=== PATIENT | male | born 1975 | race Caucasian/White ===

== ENCOUNTER 2017-12-16 11:04 | Emergency (ER) | payer SELFPAY ==
[2017-12-16 11:05] VITALS: BMI 56.9
[2017-12-16] MEDS ORDERED: Sodium Chloride 0.9% 1,000 ML IV ONE (11:34)
--- NOTE | 2017-12-16 11:35 | C.PDOC ---
History Of Present Illness 42 y/o male presents to ED with complaints of intermittent left sided chest pain radiating to left upper back with associated sob for 1 week. He states he feels his heart pounding fast as if it will come out of chest. Patient admits he drinks ETOH daily and reports last drink 10am today. Patient is speaking in full sentences and oriented. He is accompanied by mother. Denies cough, nausea, vomiting or lightheadedness. Time Seen by Provider: 12/16/17 11:18 Chief Complaint (Nursing): Chest Pain History Per: Patient History/Exam Limitations: no limitations Onset/Duration Of Symptoms: Days Current Symptoms Are (Timing): Still Present Past Medical History Reviewed: Historical Data, Nursing Documentation, Vital Signs Vital Signs: Last Vital Signs Temp 98.2 F 12/16/17 13:28 Pulse 96 H 12/16/17 13:28 Resp 20 12/16/17 13:28 BP 112/78 12/16/17 13:28 Pulse Ox 94 L 12/16/17 13:28 - Medical History PMH: Fractures (RIGHT ANKLE), Seizures Surgical History: No Surg Hx - [facility] Procedures ALCOHOL DETOXIFICATION (11/28/13) ANESTH INJEC PERIPH NERV (05/22/15) DETOXIFICATION SERVICES FOR SUBSTANCE ABUSE TREATMENT (09/09/15) OP RED-INT FIX TIB/FIBUL (05/22/15) OTHER SUTURE OF TENDON (05/22/15) Family History: States: No Known Family Hx - Social History Hx Tobacco Use: No Hx Alcohol Use: No Hx Substance Use: No - Immunization History Hx Tetanus Toxoid Vaccination: No Hx Influenza Vaccination: No Hx Pneumococcal Vaccination: No Review Of Systems Constitutional: Negative for: Fever, Chills Cardiovascular: Positive for: Chest Pain, Palpitations. Negative for: Light Headedness Respiratory: Positive for: Shortness of Breath. Negative for: Cough Gastrointestinal: Negative for: Nausea, Vomiting Skin: Negative for: Rash Neurological: Negative for: Headache, Dizziness Physical Exam - Physical Exam Appears: Non-toxic, Other (ETOH on breath. Anxious appearing) Skin: Warm, Dry, No Rash Head: Atraumatic, Normacephalic, No Tenderness, No Swelling Eye(s): bilateral: Normal Inspection, PERRL, EOMI Nose: Normal Oral Mucosa: Moist Neck: Normal ROM, Supple Chest: Symmetrical, No Tenderness, No Ecchymosis Cardiovascular: Rhythm Regular, Other (Tachycardic) Respiratory: Normal Breath Sounds, No Rales, No Rhonchi, No Wheezing Gastrointestinal/Abdominal: Soft, No Tenderness, No Guarding, No Rebound Back: Normal Inspection, No Vertebral Tenderness Extremity: Bilateral: Atraumatic, Normal ROM Neurological/Psych: Oriented x3, Normal Speech ED Course And Treatment - Laboratory Results Result Diagrams: 12/16/17 11:41 12/16/17 11:41 Lab Interpretation: No Acute Changes ECG: Interpreted By Me, Viewed By Me ECG Rhythm: Sinus Tachycardia ECG Interpretation: No Acute Changes Rate From EC (BPM ) O2 Sat by Pulse Oximetry: 95 (RA) Pulse Ox Interpretation: Normal - Radiology CXR: Interpreted by Me, Viewed By Me CXR Interpretation: Yes: No Acute Disease. No: Infiltrates, Heart Size, COPD, Pnemothorax Medical Decision Making Medical Decision Making: Impression: palpitations, anxiety, intoxication Plan: * EKG * CXR * Labs * UA, UDS * Librium Progress: Patient assessed and examined. EKG obtained and reviewed with no STEMI. Patient placed on derrick car operator. Orders placed for labs including CE, and CXR. Patient remained well and observed in ED with no changes on derrick car operator. All diagnostics reviewed , labs showed no acute findings, neg trop, ETOH >300. CXR showed no cardiopulmonary disease. Patient re-evaluated was laying comfortably on stretcher speaking to his mother. Patient states he feels better and offers no complaints, denies any chest pain or SOB at this time. I discussed results with patient and provide copy of lab and imaging reports to patient. Patient expresses understanding. Counseling was provided regarding the diagnosis and offer information on detox. I advised follow up with clinic. All questions answered and there is agreement with the plan to discharge home with instructions. Patient is stable for discharge. Advised to return if symptoms persist or worsen. Dispo: Discharge home. Patient was recommended to follow up with PCP or clinic in 1-2 days. Return to ED if symptoms worsen. Disposition Counseled Patient/Family Regarding: Diagnosis, Need For Followup - Disposition Referrals: Alcoholics Anonymous [Outside] [facility] [Outside] [place] [facility] [Outside] Alison Joes MD [Staff Provider] - Disposition: HOME/ ROUTINE Disposition Time: 13:30 Condition: STABLE Additional Instructions: Follow up with the clinic in 2-5 days for further evaluation. Take medications as prescribed. Return to the emergency department at any time if symptoms persist or worsen. You may call part time flexible clerk service for any assistance [phone]. Alycia un seguimiento con la clnica en 2-5 childs para pablito evaluacin adicional. [place] los medicamentos segn lo recetado. Regrese al departamento de emergencia en cualquier momento si los sntomas persisten o empeoran. Puede llamar al servicio de part time flexible clerk para obtener asistencia [phone]. Sherri por permitir que el equipo de [employer] sea parte de carmichael cuidado hoy. Instructions: Palpitations, Alcohol Abuse and Alcoholism (DC) Forms: [employer] (Somali) Print Language: MOHAWK - POA Present On Arrival: None - Clinical Impression Clinical Impression: Alcohol intoxication, Palpitations - PA / BRUSH FINISHER / Resident Statement MD/DO has reviewed & agrees with the documentation as recorded. - Scribe Statement The provider has reviewed the documentation as recorded by the Scribe Wale Dawkins All medical record entries made by the Leslieibtomer were at my direction and personally dictated by me. I have reviewed the chart and agree that the record accurately reflects my personal performance of the history, physical exam, medical decision making, and the department course for this patient. I have also personally directed, reviewed, and agree with the discharge instructions and disposition.
[2017-12-16 11:48] LABS: BASO # 0.1 K/uL (0.0-0.2); BASO % 0.9 % (0.0-2.0); EOS # 0.3 K/uL (0.0-0.7); EOS % 4.5 % (0.0-4.0); LYMPH # 1.9 K/uL (1.0-4.3); LYMPH % 25.2 % (20.0-40.0); MEAN CORPUSCULAR HEMOGLOBIN 32.2 pg (27.0-31.0); MEAN PLATELET VOLUME 7.6 fL (7.2-11.7); MONO # 0.7 K/uL (0.0-0.8); MONO % 9.1 % (0.0-10.0); NEUT # 4.6 K/uL (1.8-7.0); NEUT % 60.3 % (50.0-75.0); NRBC % 0.3 % (0.0-2.0); RBC 4.97 Mil/uL (4.40-5.90); RED CELL DISTRIBUTION WIDTH 14.6 % (11.5-14.5); WHITE BLOOD COUNT 7.6 K/uL (4.8-10.8)
--- NOTE | 2017-12-16 11:54 | RAD ---
HISTORY: Detox/Psy COMPARISON: Chest x-ray performed 05/16/15 TECHNIQUE: Chest PA and lateral FINDINGS: LUNGS: No focal consolidation. Please note that chest x-ray has limited sensitivity for the detection of pulmonary masses. PLEURA: No significant pleural effusion identified. No definite pneumothorax . CARDIOVASCULAR: The cardiomediastinal silhouette appears within normal limits of size. OSSEOUS STRUCTURES: No acute osseous abnormality identified. VISUALIZED UPPER ABDOMEN: Unremarkable. OTHER FINDINGS: None. IMPRESSION: No focal consolidation identified.
[2017-12-16 12:01] LABS: ALT/SGPT 65 U/L (21-72); AST/SGOT 150 U/L (17-59); BLOOD UREA NITROGEN 4 mg/dL (9-20); CALCIUM 8.8 mg/dl (8.6-10.4); GFR AFRICAN-AMERICAN > 60; GFR NON-AFRICAN AMERICAN > 60
[2017-12-16 12:03] LABS: ALBUMIN 4.4 g/dL (3.5-5.0)
[2017-12-16 12:11] LABS: CK-MB 1.43 ng/mL (0.0-3.38)
[2017-12-16] MEDS ORDERED: Sodium Chloride 0.9% 1,000 ML ONE (12:14)
[2017-12-16 12:55] LABS: BARBITURATES, UR NEGATIVE (NEGATIVE); BENZODIAZEPINES, UR NEGATIVE (NEGATIVE); OPIATES, UR NEGATIVE (NEGATIVE); PHENCYCLIDINE, UR NEGATIVE (NEGATIVE)
[2017-12-16 13:11] LABS: SQUAMOUS EPITHIAL 1 /hpf (0-5); URINE BILIRUBIN NEGATIVE (NEGATIVE); URINE BLOOD 1+ (NEGATIVE); URINE CLARITY Hazy (Clear); URINE COLOR Yellow (YELLOW); URINE GLUCOSE (UA) NORMAL (Normal); URINE LEUKOCYTE ESTERASE NEG Leu/uL (Negative); URINE PROTEIN 2+ mg/dL (NEGATIVE); URINE UROBILINOGEN NORMAL mg/dL (0.2-1.0)
[2017-12-16 13:29] VITALS: BP 112/78; PULSE 96; RESP 20; TEMP 98.2
--- NOTE | 2017-12-16 17:31 | CARD ---
APPROVED REPORT EKG Measurement Heart [id number] <Conclusion> Sinus tachycardia Otherwise normal ECG
[2017-12-16 18:36] VITALS: O2SAT 95
== END 2017-12-16 13:33 | disposition home or self-care (01) ==
LOC: C.ER 11:04
DX: F10.129 Alcohol abuse with intoxication, unspecified (principal); Y90.8 Blood alcohol level of 240 mg/100 ml or more; R00.2 Palpitations
CPT/HCPCS: 71046; 80053; 81001; 84484; 85025; 93005; 96360; 99285; G0480; J7040

== ENCOUNTER 2018-01-17 19:06 | Emergency (ER) | payer SELFPAY ==
[2018-01-17 19:06] VITALS: BMI 56.9
--- NOTE | 2018-01-17 20:36 | C.PDOC ---
History Of Present Illness 42 year old male presents to the ED complaining of intermittent chest pain. Also admits to drinking heavily, wants detox. He denies any fever, chills, vomiting, or SOB. Time Seen by Provider: 01/17/18 20:35 Chief Complaint (Nursing): Chest Pain History Per: Patient History/Exam Limitations: no limitations Onset/Duration Of Symptoms: Intermittent Episodes Current Symptoms Are (Timing): Still Present Severity: Mild Pain Scale Rating Of: 4 Exacerbating Factors: None Alleviating Factors: None Recent travel outside of the [place]: No Past Medical History Reviewed: Historical Data, Nursing Documentation, Vital Signs Vital Signs: Last Vital Signs Temp 98.2 F 01/17/18 20:45 Pulse 102 H 01/17/18 20:45 Resp 18 01/17/18 20:45 BP 126/82 01/17/18 20:45 Pulse Ox 97 01/17/18 20:55 - Medical History PMH: Fractures (RIGHT ANKLE), Seizures Denies: Diabetes, Hepatitis, HIV, HTN, Chronic Kidney Disease, Sexually Transmitted Disease Other Surgeries: Right ankle surgery - [facility] Procedures ALCOHOL DETOXIFICATION (11/28/13) ANESTH INJEC PERIPH NERV (05/22/15) DETOXIFICATION SERVICES FOR SUBSTANCE ABUSE TREATMENT (09/09/15) OP RED-INT FIX TIB/FIBUL (05/22/15) OTHER SUTURE OF TENDON (05/22/15) Family History: States: Unknown Family Hx - Social History Hx Tobacco Use: No Hx Alcohol Use: Yes Hx Substance Use: No - Immunization History Hx Tetanus Toxoid Vaccination: No Hx Influenza Vaccination: No Hx Pneumococcal Vaccination: No Review Of Systems Constitutional: Negative for: Fever, Chills Cardiovascular: Positive for: Chest Pain Respiratory: Negative for: Shortness of Breath Gastrointestinal: Negative for: Nausea, Vomiting Physical Exam - Physical Exam Appears: Non-toxic, No Acute Distress Skin: Warm, Dry Head: Normacephalic Eye(s): bilateral: Normal Inspection Oral Mucosa: Moist Neck: Trachea Midline, Supple Chest: Symmetrical Cardiovascular: Rhythm Regular Respiratory: No Rales, No Rhonchi, No Wheezing Gastrointestinal/Abdominal: Soft, No Tenderness, No Distention Extremity: Bilateral: Atraumatic, Normal Color And Temperature, Normal ROM Pulses: Left Dorsalis Pedis: Normal, Right Dorsalis Pedis: Normal Neurological/Psych: Oriented x3 Gait: Steady ED Course And Treatment - Laboratory Results Result Diagrams: 01/17/18 20:48 01/17/18 20:48 ECG: Interpreted By Me, Viewed By Me ECG Rhythm: Sinus Rhythm (118), Nonspecific Changes O2 Sat by Pulse Oximetry: 97 Pulse Ox Interpretation: Normal - Radiology CXR: Interpreted by Me, Viewed By Me CXR Interpretation: No: Infiltrates, Fracture, Pnemothorax Progress Note: Explained to patient that there are no detox beds available. Ordered labs with cardiac enzymes, EKG, and Chest x-ray. Patient given 325 mg Aspirin PO. Pt was given phone numbers for detox centers Reevaluation Time: 21:21 Reassessment Condition: Improved Disposition Counseled Patient/Family Regarding: Studies Performed, Diagnosis, Need For Followup - Disposition Referrals: [facility] [Outside] [facility] [Outside] Disposition: HOME/ ROUTINE Disposition Time: 21:21 Condition: FAIR Instructions: Chest Pain (DC), Alcohol Abuse and Alcoholism (DC) Forms: [employer] [facility] (Panamanian) - Clinical Impression Clinical Impression: Chest pain, Alcohol abuse - Scribe Statement The provider has reviewed the documentation as recorded by the Scribe (Yanna Stanton) Provider Attestation: All medical record entries made by the Scribe were at my direction and personally dictated by me. I have reviewed the chart and agree that the record accurately reflects my personal performance of the history, physical exam, medical decision making, and the department course for this patient. I have also personally directed, reviewed, and agree with the discharge instructions and disposition.
[2018-01-17] MEDS ORDERED: Aspirin 325 mg EC Tablets PO STA (20:38)
[2018-01-17 20:54] LABS: BASO # 0.1 K/uL (0.0-0.2); BASO % 0.6 % (0.0-2.0); EOS # 0.4 K/uL (0.0-0.7); EOS % 4.6 % (0.0-4.0); HEMOGLOBIN 15.1 g/dL (12.0-18.0); LYMPH # 2.4 K/uL (1.0-4.3); LYMPH % 27.4 % (20.0-40.0); MEAN CELL VOLUME 93.2 fL (80.0-94.0); MEAN CORPUSCULAR HEMOGLOBIN 31.8 pg (27.0-31.0); MEAN CORPUSCULAR HGB CONC 34.1 g/dL (33.0-37.0); MEAN PLATELET VOLUME 7.9 fL (7.2-11.7); MONO # 0.9 K/uL (0.0-0.8); MONO % 10.4 % (0.0-10.0); NEUT # 5.1 K/uL (1.8-7.0); RBC 4.74 Mil/uL (4.40-5.90); RED CELL DISTRIBUTION WIDTH 15.1 % (11.5-14.5); WHITE BLOOD COUNT 8.9 K/uL (4.8-10.8)
[2018-01-17 21:02] LABS: INR 1.3; PROTHROMBIN TIME 14.6 SECONDS (9.7-12.2)
[2018-01-17 21:07] LABS: ALB/GLOB RATIO 0.9 (1.0-2.1); ALT/SGPT 56 U/L (21-72); AST/SGOT 146 U/L (17-59); BLOOD UREA NITROGEN 5 mg/dL (9-20); CALCIUM 8.2 mg/dl (8.6-10.4); GFR AFRICAN-AMERICAN > 60; GFR NON-AFRICAN AMERICAN > 60
[2018-01-17 21:39] VITALS: BP 129/79; PULSE 92; RESP 20; TEMP 98.1; O2SAT 95
--- NOTE | 2018-01-18 11:23 | RAD ---
PROCEDURE: CHEST RADIOGRAPH, 1 VIEW HISTORY: chest pain COMPARISON: 12/16/2017 FINDINGS: LUNGS: Clear. PLEURA: No pneumothorax or pleural fluid seen. CARDIOVASCULAR: Normal. OSSEOUS STRUCTURES: No significant abnormalities. VISUALIZED UPPER ABDOMEN: Normal. OTHER FINDINGS: None. IMPRESSION: No active disease. No acute/significant interval changes. Concordant results with the preliminary interpretation rendered by the emergency department physician procedure.
--- NOTE | 2018-01-18 17:06 | CARD ---
APPROVED REPORT EKG Measurement Heart [id number] <Conclusion> Sinus tachycardia Otherwise normal ECG
== END 2018-01-17 21:39 | disposition home or self-care (01) ==
LOC: C.ER 19:06
DX: R07.9 Chest pain, unspecified (principal); F10.10 Alcohol abuse, uncomplicated; Y90.9 Presence of alcohol in blood, level not specified

== ENCOUNTER 2018-01-24 16:13 | Inpatient (IN) | payer MEDICAID ==
[2018-01-24 16:27] VITALS: BMI 25.4
[2018-01-24 17:33] LABS: BASO # 0.1 K/uL (0.0-0.2); BASO % 1.1 % (0.0-2.0); EOS # 0.2 K/uL (0.0-0.7); EOS % 2.8 % (0.0-4.0); HEMOGLOBIN 16.2 g/dL (12.0-18.0); LYMPH # 2.3 K/uL (1.0-4.3); LYMPH % 28.5 % (20.0-40.0); MEAN CELL VOLUME 93.2 fL (80.0-94.0); MEAN CORPUSCULAR HEMOGLOBIN 32.1 pg (27.0-31.0); MEAN CORPUSCULAR HGB CONC 34.5 g/dL (33.0-37.0); MEAN PLATELET VOLUME 7.6 fL (7.2-11.7); MONO # 0.7 K/uL (0.0-0.8); MONO % 8.7 % (0.0-10.0); NEUT # 4.8 K/uL (1.8-7.0); NEUT % 58.9 % (50.0-75.0); NRBC % 0.1 % (0.0-2.0); RBC 5.04 Mil/uL (4.40-5.90); WHITE BLOOD COUNT 8.1 K/uL (4.8-10.8)
--- NOTE | 2018-01-24 17:36 | C.PDOC ---
History Of Present Illness 42 year old male presents to the ED requesting alcohol detox. 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 Patient admits to drinking a 6-pack of 24-ounce beer every day. Patient has no physical complaints at this time. Chief Complaint (Nursing): Substance Abuse History Per: Patient History/Exam Limitations: no limitations Onset/Duration Of Symptoms: Hrs (3) Current Symptoms Are (Timing): Still Present Suicide/Self Injury Attempted (Context): None Associated Symptoms: denies: Suicidal Thoughts, Suicidal Plan Involuntary Hold By: None Recent travel outside of the [place]: No Additional History Per: Patient Past Medical History Reviewed: Historical Data, Nursing Documentation, Vital Signs Vital Signs: Last Vital Signs Temp 98.4 F 01/24/18 16:28 Pulse 98 H 01/24/18 16:28 Resp 18 01/24/18 16:28 BP 113/80 01/24/18 16:28 Pulse Ox 97 01/24/18 18:05 - Medical History PMH: Fractures (RIGHT ANKLE), Seizures (Withdrawal) Denies: Diabetes, Hepatitis, HIV, HTN, Chronic Kidney Disease, Sexually Transmitted Disease Surgical History: No Surg Hx - [facility] Procedures ALCOHOL DETOXIFICATION (11/28/13) ANESTH INJEC PERIPH NERV (05/22/15) DETOXIFICATION SERVICES FOR SUBSTANCE ABUSE TREATMENT (09/09/15) OP RED-INT FIX TIB/FIBUL (05/22/15) OTHER SUTURE OF TENDON (05/22/15) Family History: States: Unknown Family Hx - Social History Hx Tobacco Use: No Hx Alcohol Use: Yes Hx Substance Use: No - Immunization History Hx Tetanus Toxoid Vaccination: No Hx Influenza Vaccination: No Hx Pneumococcal Vaccination: No Review Of Systems Psych: Positive for: Other (alcohol detox ) Physical Exam - Physical Exam Appears: Non-toxic, No Acute Distress Skin: Normal Color, Warm, Dry Head: Atraumatic, Normacephalic Eye(s): bilateral: Normal Inspection Oral Mucosa: Moist, Other (alcohol on breath ) Neck: Supple Chest: Symmetrical, No Deformity, No Tenderness Cardiovascular: Rhythm Regular, No Murmur Respiratory: Normal Breath Sounds, No Rales, No Rhonchi, No Wheezing Extremity: Normal ROM, Capillary Refill (less than 2 seconds ) Neurological/Psych: Oriented x3, Normal Speech, Normal Cognition ED Course And Treatment - Laboratory Results Result Diagrams: 01/24/18 17:30 01/24/18 17:30 O2 Sat by Pulse Oximetry: 97 (on RA) Pulse Ox Interpretation: Normal Medical Decision Making Medical Decision Making: Impression: 42 year old male requesting alcohol detox Progress: Bloodwork and UA ordered and reviewed. Patient has been medically cleared. Disposition - Disposition Disposition Time: 18:20 Condition: STABLE Forms: [employer] [facility] (Turkish) - Clinical Impression Clinical Impression: Alcohol abuse, Alcohol dependence - Scribe Statement The provider has reviewed the documentation as recorded by the Scribe (Mary Kay Garcia) Provider Attestation: All medical record entries made by the Scribe were at my direction and personally dictated by me. I have reviewed the chart and agree that the record accurately reflects my personal performance of the history, physical exam, medical decision making, and the department course for this patient. I have also personally directed, reviewed, and agree with the discharge instructions and disposition.
[2018-01-24 17:39] LABS: SQUAMOUS EPITHIAL < 1 /hpf (0-5); URINE BILIRUBIN NEGATIVE (NEGATIVE); URINE BLOOD 1+ (NEGATIVE); URINE CLARITY Clear (Clear); URINE COLOR Yellow (YELLOW); URINE GLUCOSE (UA) NORMAL (Normal); URINE LEUKOCYTE ESTERASE NEG Leu/uL (Negative); URINE PROTEIN 1+ mg/dL (NEGATIVE); URINE UROBILINOGEN NORMAL mg/dL (0.2-1.0)
[2018-01-24 17:50] LABS: BARBITURATES, UR NEGATIVE (NEGATIVE); BENZODIAZEPINES, UR NEGATIVE (NEGATIVE); OPIATES, UR NEGATIVE (NEGATIVE); PHENCYCLIDINE, UR NEGATIVE (NEGATIVE)
[2018-01-24 17:53] LABS: ALB/GLOB RATIO 0.8 (1.0-2.1); ALBUMIN 4.3 g/dL (3.5-5.0); ALT/SGPT 55 U/L (21-72); AST/SGOT 161 U/L (17-59); BLOOD UREA NITROGEN 3 mg/dL (9-20); CALCIUM 8.6 mg/dl (8.6-10.4); GFR AFRICAN-AMERICAN > 60; GFR NON-AFRICAN AMERICAN > 60
--- NOTE | 2018-01-25 02:01 | PCM.BM ---
<Nathalie Soria - Last Filed: 01/25/18 02:00> Treatment Plan Problems - Problems identified on initial assessmt ETOH Dependence Date Initiated: 01/25/18 Time Initiated: 02:01 Assessment reference: NA Status: Active Treatment assets and liabiliti Patient Assests: ADL independent Patient Liabilities: substance abuse - Milieu Protocol Maintain good personal hygiene: daily Encourage regular showers, daily Remind patient to perform daily oral care, daily Assist patient to perform ADL's Maintain personal safety: every shift Educate patient to report safety concerns to staff, every shift Monitor environment for contraband/sharps Medication safety: Monitor for expected outcome, potential side effects: every shift, Assess barriers to learning: every shift, Assess readiness for medication education: every shift <Sean Tang - Last Filed: 01/25/18 23:28> - Diagnosis (1) Alcohol dependence Status: Acute Interventions: 01/25/18 23:28 * Assess 7x/week regarding severity of withdrawal * Educate regarding risks, benefits, side effects and alternatives of medications * Use Motivational Interviewing for abstinence * Use CBT for relapse prevention * Medication management for withdrawal symptoms * Encourage medication assisted treatment * <Pinky Hopson - Last Filed: 01/27/18 08:03> Family Contact Family involvement: Mattyy/SO not involved - Goals for Treatment Patient goals for treatment: Complete detox and transition to IOP at [facility]. Discharge/Continuing Care - Education Needs Education Needs: Patient Medication, Patient Diagnosis/Disease Process, Patient Coping Skills, Patient Anger Management skills, Patient Placement options, Patient Community resources, Patient Activities of Daily Living - Discharge Discharge Criteria: No longer exhibiting s/s of withdrawal, Reduction of target symptoms Discharge to:: Home - Treatment Team Participation Patient/Family/SO Statement: 01/27/18 08:02 "I wanna go to IOP after here..." Discussed with Family/SO: No Was Patient/Family/SO present at Treatment Team Meeting: Yes
[2018-01-25] MEDS: Multiple Vitamins Tab PO SCH (10:34)
--- NOTE | 2018-01-25 13:59 | PCM.PSYCH ---
Initial Psychiatric Evaluation - Initial Psychiatric Evaluation Type of Admission: Voluntary Legal Status: Capacity Chief Complaint (in patient's own words): "I need help." History of Present Illness and Precipitating Events: This is a 42 year old male, who is unemployed and lives with mother, who presents to the ED for alcohol detox. Patient states his last drink was yesterday before he came to the ED. Patient's blood alcohol level was 388 upon arrival to ED. Patient states he drinks 2 cans 24oz of coors; according to ED report, he states he drinks 6 pack of 24oz cans of beer. Patient denied any illicit drug use. Patient denied tobacco use. Patient states he attended detox at [facility] in August 2015. Patient states he remained sober following discharge for 4-6 months before relapsing. According to patient record, he has previously been at [facility] for detox in November 2013 and July 2013. Patient states his longest length of sobriety was 1 year. Patient denies psychiatric hospitalizations. Patient denies feelings of depression, anxiety, or paranoia. Patient denied suicidal ideation, visual or auditory hallucinations. medical history: denies psych history: denies Current Medications: Active Medications Generic Name Dose Route Start Last Admin Trade Name Freq PRN Reason Stop Dose Admin Chlordiazepoxide 25 mg 01/25/18 10:00 01/25/18 10:34 Librium PO 01/30/18 09:59 25 mg Q6H JAZMYNE Administration Taper Chlordiazepoxide 25 mg 01/25/18 08:48 Librium PO Q4H PRN Alcohol Withdrawal Clonidine HCl 0.1 mg 01/25/18 08:48 Catapres PO Q4H PRN Symptoms of alcohol withdrawl Folic Acid 1 mg 01/25/18 10:00 01/25/18 10:34 Folic Acid PO 1 mg DAILY JAZMYNE Administration Gabapentin 300 mg 01/25/18 10:00 01/25/18 10:34 Neurontin PO 300 mg TID JAZMYNE Administration Hydroxyzine HCl 50 mg 01/25/18 08:50 Atarax PO Q6H PRN Anxiety Ibuprofen 600 mg 01/25/18 08:50 Motrin Tab PO Q6H PRN Pain, moderate (4-7) Multivitamins 1 tab 01/25/18 10:00 01/25/18 10:34 Hexavitamin PO 1 tab DAILY JAZMYNE Administration Pneumococcal Polyvalent Vaccine 0.5 ml 01/28/18 10:00 Pneumovax 23 Vaccine IM 01/28/18 10:01 .ONCE ONE Thiamine HCl 100 mg 01/25/18 11:45 01/25/18 12:31 Vitamin B1 Tab PO 100 mg DAILY JAZMYNE Administration Trazodone HCl 50 mg 01/25/18 01:42 01/25/18 02:04 Desyrel PO 50 mg HS PRN Administration Insomnia Past Psychiatric History - Past Psychiatric History Previous Treatment History: None History of ETOH/Drug Use: Alcohol Use Disorder Pertinent Medical Hx (Current Medical&Sleep Prob, Allergies): Allergies Allergy/AdvReac Type Severity Reaction Status Date / Time No Known Allergies Allergy Verified 01/24/18 16:27 No Known Home Med 09/08/15 Review of Systems - Review of Systems All systems: reviewed and no additional remarkable complaints except - Psychiatric Psychiatric: absent: Anxiety, Auditory Hallucinations, Depression, Hallucinations, Paranoia, Suicidal Ideation, Visual Hallucinations Mental Status Examination - Personal Presentation Personal Presentation: Looks stated age - Affect Affect: Broad - Motor Activity Motor Activity: Calm - Reliability in Providing Information Reliability in Providing Information: Fair - Speech Speech: Organized - Mood Mood: Neutral - Formal Thought Process Formal Thought Process: No Impairment - Obsessions/Compulsions Obsessions: No Compulsions: No - Cognitive Functions Orientation: Person, Place, Situation, Time Sensorium: Alert Attention/Concentration: Attentive Abstract Thinking: [place] Estimate of Intelligence: Average - Risk Risk: Withdrawal - Strength & Assets Inventory Strength & Assets Inventory: Family support DSM 5 DX - DSM 5 DSM 5 Diagnosis: Alcohol Use Disorder, severe Alcohol Withdrawal - Recommended/Plan of Treatment Treatment Recommendations and Plan of Treatment: -Alcohol Use Disorder Start Librium taper Gabapentin for augmentation As needed medications All risks, benefits and alternatives of the meds discussed, and the pt agreed and understood. Attend groups and activities Supportive therapy and psychoeducation SC for abstinence CBT for relapse prevention Encourage MAT Refer to rehab or IOP, and self-help groups -Elevated LFTs Labwork for Hep C 33 min Projected ELOS: 4-5 days Prognosis: good w treatment
[2018-01-25 15:35] LABS: HEPATITIS C ANTIBODY NEGATIVE (NEGATIVE)
[2018-01-26] MEDS: Multiple Vitamins Tab PO SCH (10:30)
--- NOTE | 2018-01-26 16:22 | PCM.PYCHPN ---
Psychiatric Progress Note - Psychiatric Progress Note Patient seen today, length of contact: 16 minutes Patient Chief Complaint: "I am doing better." Problems Identified/Issues Discussed: The pt is seen, chart reviewed, case discussed with staff. Patient is sleeping okay and eating okay. He states he still has some withdrawal symptoms, including a tremor. Support given, CBT and DE used briefly No new symptoms reported, improving slowly and needs more time No SEs from medications, risks discussed. Medication Change: Yes Medical Record Reviewed: Yes Mental Status Examination - Cognitive Function Orientation: Person, Place, Situation, Time Memory: Intact Attention: WNL Concentration: WNL Association: WNL Fund of Knowledge: WNL - Mood Mood: Neutral - Affect Affect: Broad - Speech Speech: Appropriate - Formal Thought Process Formal Thought Process: No Impairment - Suicidal Ideation Suicidal Ideation: No - Homicidal Ideation Homicidal Ideation: No Goal/Treatment Plan - Goal/Treatment Plan Need for Continued Stay: Discharge may exacerbated symptoms Progress Toward Problem(s) and Goals/Treatment Plan: Continue Librium taper Continue other medications Support and psychoeducation daily Attend groups and activities daily After care planning by GHANSHYAM
[2018-01-27] MEDS: Multiple Vitamins Tab PO SCH (09:58)
--- NOTE | 2018-01-27 13:01 | PCM.PYCHPN ---
Psychiatric Progress Note - Psychiatric Progress Note Patient seen today, length of contact: 16 minutes Patient Chief Complaint: "I am OK" Problems Identified/Issues Discussed: The pt is seen, chart reviewed, case discussed with staff. Support given, CBT and OH used briefly No new symptoms reported, improving slowly and needs more time No SEs from medications, risks discussed. After care discussed Medication Change: Yes (detox changes daily) Medical Record Reviewed: Yes Mental Status Examination - Cognitive Function Orientation: Person, Place, Situation, Time Memory: Intact Attention: WNL Concentration: WNL Association: WNL Fund of Knowledge: WNL - Mood Mood: Neutral - Affect Affect: Broad - Speech Speech: Appropriate - Formal Thought Process Formal Thought Process: No Impairment - Suicidal Ideation Suicidal Ideation: No - Homicidal Ideation Homicidal Ideation: No Goal/Treatment Plan - Goal/Treatment Plan Need for Continued Stay: Discharge may exacerbated symptoms, Severe functional impairment Progress Toward Problem(s) and Goals/Treatment Plan: Continue Librium taper Continue other medications Support and psychoeducation daily Attend groups and activities daily After care planning by GHANSHYAM
[2018-01-28] MEDS: Multiple Vitamins Tab PO SCH (09:38)
[2018-01-28] MEDS ORDERED: Pneumococcal 23-Valent Vaccine IM ONE (10:00)
--- NOTE | 2018-01-28 13:25 | PCM.PYCHPN ---
Psychiatric Progress Note - Psychiatric Progress Note Patient seen today, length of contact: 16 minutes Patient Chief Complaint: "I am doing fine now" Problems Identified/Issues Discussed: The pt is seen, chart reviewed, case discussed with staff. The pt is compliant with medications and reports no side-effects. Symptoms are improving but needs more time to stabilize. After care discussed, support and psychoeducation given. Medication Change: Yes (detox changes daily) Medical Record Reviewed: Yes Mental Status Examination - Cognitive Function Orientation: Person, Place, Situation, Time Memory: Intact Attention: WNL Concentration: WNL Association: WNL Fund of Knowledge: WNL - Mood Mood: Neutral - Affect Affect: Broad - Speech Speech: Appropriate - Formal Thought Process Formal Thought Process: No Impairment - Suicidal Ideation Suicidal Ideation: No - Homicidal Ideation Homicidal Ideation: No Goal/Treatment Plan - Goal/Treatment Plan Need for Continued Stay: Discharge may exacerbated symptoms, Severe functional impairment Progress Toward Problem(s) and Goals/Treatment Plan: Continue Librium taper Continue other medications Support and psychoeducation daily Attend groups and activities daily After care planning by GHANSHYAM
--- NOTE | 2018-01-29 08:52 | PCM.PYCHDC ---
Mental Status Examination - Mental Status Examination Orientation: Person Memory: Intact Discharge Summary - Discharge Note Consultations:: List each consultation separately and include: 1. Reason for request. 2. Findings. 3. Follow-up Summary of Hospital Course include:: 1. Description of specific treatment plan utilized for patients during their course of treatmen. 2. Summarize the time- course for resolution of acute symptoms and/or regressed behaviors. 3. Describe issues identified and worked on during hospitalization. 4. Describe medication utilized. 5. Describe medical problems identified and treated. 6. Reassessment of suicide risk Summary of Hospital Course: This is a 42 year old male, who is unemployed and lives with mother, who presents to the ED for alcohol detox. Patient states his last drink was yesterday before he came to the ED. Patient's blood alcohol level was 388 upon arrival to ED. Patient states he drinks 2 cans 24oz of coors; according to ED report, he states he drinks 6 pack of 24oz cans of beer. Patient denied any illicit drug use. Patient denied tobacco use. Patient states he attended detox at [facility] in August 2015. Patient states he remained sober following discharge for 4-6 months before relapsing. According to patient record, he has previously been at [facility] for detox in November 2013 and July 2013. Patient states his longest length of sobriety was 1 year. Patient denies psychiatric hospitalizations. Patient denies feelings of depression, anxiety, or paranoia. Patient denied suicidal ideation, visual or auditory hallucinations. medical history: denies psych history: denies He will go to and consider [facility] - has no insurance and needs to "work," he says. - Diagnosis (1) Alcohol dependence Current Visit: Yes Status: Acute - Final Diagnosis (DSM 5) Condition upon Discharge: STABLE Disposition: HOME/ ROUTINE Follow-up Treatment Plan: Continue Librium taper Continue other medications Support and psychoeducation daily Attend groups and activities daily After care planning by GHANSHYAM Prescriptions/Medication Reconciliation: Gabapentin [Neurontin] 300 mg PO BID #60 cap traZODone [Desyrel] 100 mg PO HS PRN #30 tab PRN Reason: Insomnia
[2018-01-29] MEDS: Multiple Vitamins Tab PO SCH (09:10)
[2018-01-29 10:19] VITALS: BP 129/90; PULSE 96; RESP 20; TEMP 98.4; O2SAT 97
== END 2018-01-29 10:45 | disposition home or self-care (01) | DRG 897 ==
LOC: C.ER 16:13 → C.7D 01-25 00:39
PROVIDERS: ADMIT Psychiatry & Neurology Psychiatry; ATTEND Psychiatry & Neurology Psychiatry
PROC: HZ2ZZZZ Detoxification Services for Substance Abuse Treatment (ICD-10-PCS; principal; 2018-01-25)
DX: F10.239 Alcohol dependence with withdrawal, unspecified (principal); Y90.8 Blood alcohol level of 240 mg/100 ml or more; R56.9 Unspecified convulsions

== ENCOUNTER 2018-04-04 17:34 | Emergency (ER) | payer MEDICAID, OTHER ==
[2018-04-04 17:34] VITALS: BMI 25.4
[2018-04-04 17:39] VITALS: RESP 18
--- NOTE | 2018-04-04 18:41 | C.PDOC ---
History Of Present Illness 42 y/o male presents to ED with c/o bleeding from right upper molar developed earlier today. Patient is s/p dental extraction 5 days ago. Patient has many prior evaluations for etoh abuse, admits to heavy drinking over weekend but did not drink today. Patient reports he noticed increased oozing and increased heart rate prompting visit to ED. Time Seen by Provider: 04/04/18 17:43 Chief Complaint (Nursing): Dental Pain History Per: Patient History/Exam Limitations: no limitations Onset/Duration Of Symptoms: Days Current Symptoms Are (Timing): Still Present Past Medical History Reviewed: Historical Data, Nursing Documentation, Vital Signs Vital Signs: Last Vital Signs Temp 98.2 F 04/04/18 18:52 Pulse 82 04/04/18 18:52 Resp 18 04/04/18 18:52 BP 106/64 04/04/18 18:52 Pulse Ox 96 04/04/18 18:52 - Medical History PMH: Fractures (RIGHT ANKLE), Seizures (Withdrawal) Surgical History: No Surg Hx - [facility] Procedures ALCOHOL DETOXIFICATION (11/28/13) ANESTH INJEC PERIPH NERV (05/22/15) DETOXIFICATION SERVICES FOR SUBSTANCE ABUSE TREATMENT (01/25/18) OP RED-INT FIX TIB/FIBUL (05/22/15) OTHER SUTURE OF TENDON (05/22/15) Family History: States: No Known Family Hx - Social History Hx Tobacco Use: No Hx Alcohol Use: Yes Hx Substance Use: Yes - Immunization History Hx Tetanus Toxoid Vaccination: No Hx Influenza Vaccination: No Hx Pneumococcal Vaccination: No Review Of Systems Constitutional: Negative for: Fever, Chills ENT: Positive for: Mouth Pain, Mouth Swelling Cardiovascular: Negative for: Chest Pain Respiratory: Negative for: Cough Skin: Negative for: Rash Physical Exam - Physical Exam Appears: Non-toxic, No Acute Distress Skin: Warm, Dry, No Rash Head: Atraumatic, Normacephalic Eye(s): bilateral: Normal Inspection Oral Mucosa: Moist Teeth: Other (oozing with clot to right upper molar. No tremors) Throat: Normal, No Erythema, No Exudate Cardiovascular: Rhythm Regular, Other (Tachycardia) Respiratory: Normal Breath Sounds, No Rales, No Rhonchi, No Wheezing Neurological/Psych: Oriented x3, Normal Speech ED Course And Treatment O2 Sat by Pulse Oximetry: 97 (RA) Pulse Ox Interpretation: Normal Medical Decision Making Medical Decision Making: oozing @ R upper molar surgical area POD #5, exacerbated by alcohol withdrawal symptoms of tachycardia and elevated BP, improved and hemostasis achieved with Librium 50 mg PO alcohol moderation educated. Disposition Doctor Will See Patient In The: Office Counseled Patient/Family Regarding: Studies Performed, Diagnosis - Disposition Referrals: Alcoholics Anonymous [Outside] [facility] [Outside] [facility] [Outside] [facility] [Outside] [facility] [Outside] Disposition: HOME/ ROUTINE Disposition Time: 18:42 Condition: GOOD Additional Instructions: sis el excesso de alcohol- Se eleva carmichael pression y tachycardia cuando se ronald de elvis (despues de cantidades grandes) No tocas el hematoma del diente para que ronald de sangrar naturalmente. sigue con carmichael dentista margaret necessario. Instructions: Alcohol Abuse and Alcoholism (DC), Bleeding After Surgery, Alcohol Withdrawal Forms: [employer] (Mongolian) Print Language: MALAY - Clinical Impression Clinical Impression: Alcohol withdrawal syndrome, Surgical wound hemorrhage after dental procedure - Scribe Statement The provider has reviewed the documentation as recorded by the Scribe Wale Dawkins All medical record entries made by the Scribe were at my direction and personally dictated by me. I have reviewed the chart and agree that the record accurately reflects my personal performance of the history, physical exam, medical decision making, and the department course for this patient. I have also personally directed, reviewed, and agree with the discharge instructions and disposition.
[2018-04-04 18:53] VITALS: BP 106/64; PULSE 82; TEMP 98.2
[2018-04-05 18:12] VITALS: O2SAT 97
== END 2018-04-04 19:23 | disposition home or self-care (01) ==
LOC: C.ER 17:34
DX: F10.239 Alcohol dependence with withdrawal, unspecified (principal); K91.841 Postprocedural hemorrhage of a digestive system organ or structure following other procedure; Y83.8 Other surgical procedures as the cause of abnormal reaction of the patient, or of later complication, without mention of misadventure at the time of the procedure; Y92.89 Other specified places as the place of occurrence of the external cause